=== PATIENT | female | born 1965 | race African-American/Black ===

== ENCOUNTER 2017-06-04 08:24 | Inpatient (IN) | payer OTHER ==
[2017-06-04 10:19] VITALS: BMI 21.2
--- NOTE | 2017-06-04 12:09 | HP ---
CIWA Score - CIWA Score Nausea/Vomitin Muscle Tremors: 3 Anxiety: 3 Agitation: 3 Paroxysmal Sweats: 1-Minimal Palms Moist Orientation: 0-Oriented Tacttile Disturbances: 1-Very Mild Itch/Numbness Auditory Disturbances: 1-Very Mild Visual Disturbances: 0-None Headache: 2-Mild CIWA-Ar Total Score: 17 Admission ROS BHS - HPI Chief Complaint: I NEED HELP TO STOP DRINKING ALCOHOL AND COCAINE Allergies/Adverse Reactions: Allergies Allergy/AdvReac Type Severity Reaction Status Date / Time No Known Allergies Allergy Verified 06/04/17 10:29 History of Present Illness: THIS 51 YEARS OLD FEMALE WITH ALCOHOL AND COCAINE DEPENDENCE,SEEKING DETOX, WITHDRAWAL SYMPTOM,LAST DETOX AT [place] [id number] NICOTINE DEPENDENCE LONGEST SOBRIETY 6 MONTHS Exam Limitations: No Limitations - Ebola screening Have you traveled outside of the country in the last 21 days: No Have you had contact with anyone from an Ebola affected area: No Have you been sick,other than usual withdrawal symptoms: No - Review of Systems Constitutional: Loss of Appetite, Malaise, Night Sweats, Changes in sleep, Weakness, Unintentional Wgt. Loss EENT: reports: Nose Congestion Respiratory: reports: No Symptoms reported Cardiac: reports: No Symptoms Reported GI: reports: Nausea, Vomiting, Abdominal cramping : reports: No Symptoms Reported Musculoskeletal: reports: Back Pain, Muscle Pain Integumentary: reports: Dryness Neuro: reports: Headache, Tremors Endocrine: reports: No Symptoms Reported Hematology: reports: No Symptoms Reported Psychiatric: reports: No Sypmtoms Reported, Judgement Intact, Mood/Affect Appropiate, Orientated x3 Patient History - Patient Medical History Hx Anemia: No Hx Asthma: No Hx Chronic Obstructive Pulmonary Disease (COPD): No Hx Cancer: No Hx Cardiac Disorders: No Hx Congestive Heart Failure: No Hx Hypertension: No Hx Hypercholesterolemia: No Hx Pacemaker: No HX Cerebrovascular Accident: No Hx Seizures: No Hx Dementia: No Hx Diabetes: No Hx Gastrointestinal Disorders: No Hx Liver Disease: No Hx Genitourinary Disorders: No Hx Sexually Transmitted Disorders: No Hx Renal Disease (ESRD): No Hx Thyroid Disease: No Hx Human Immunodeficiency Virus (HIV): No (LAST 2015 NEGATIVE) Hx Hepatitis C: No Hx Depression: No Hx Suicide Attempt: No Hx Bipolar Disorder: No Hx Schizophrenia: No Other Medical History: NO SUICIDAL NO HOMICIDAL - Patient Surgical History Past Surgical History: No Hx Neurologic Surgery: No Hx Cataract Extraction: No Hx Cardiac Surgery: No Hx Lung Surgery: No Hx Breast Surgery: No Hx Breast Biopsy: No Hx Abdominal Surgery: No Hx Appendectomy: No Hx Cholecystectomy: No Hx Genitourinary Surgery: No Hx Section: No Hx Orthopedic Surgery: No Anesthesia Reaction: No - PPD History Previous Implant?: Yes Documented Results: Negative w/o proof Implanted On Prior [facility] Admission?: No PPD to be Administered?: Yes - Reproductive History Patient is a Female of Child Bearing Age (11 -55 yrs old): Yes Patient : No - Smoking Cessation Smoking history: Current every day smoker Have you smoked in the past 12 months: Yes Aproximately how many cigarettes per day: 20 Hx Chewing Tobacco Use: No Initiated information on smoking cessation: Yes 'Breaking Loose' booklet given: 06/04/17 - Substance & Tx. History Hx Alcohol Use: Yes Hx Substance Use: Yes Substance Use Type: Alcohol, Cocaine Hx Substance Use Treatment: Yes (LAST 2015 [facility]) - Substances Abused Crack Route: Smoking Frequency: Daily Amount used: 50 Age of first use: 20 Date of Last Use: 06/03/17 Cocaine Route: Smoking Frequency: Daily Amount used: 50 Age of first use: 20 Date of Last Use: 06/03/17 Alcohol Route: Oral Frequency: Daily Amount used: 1 PINT Age of first use: 20 Date of Last Use: 06/03/17 Family Disease History - Family Disease History Family History: Denies Admission Physical Exam BHS - Vital Signs Vital Signs: Vital Signs - 24 hr 06/04/17 10:16 Temperature 97.4 F L Pulse Rate 71 Respiratory 19 Rate Blood Pressure 107/65 - Physical General Appearance: Yes: Moderate Distress, Tremorous, Irritable, Sweating, Anxious HEENTM: Yes: Normal ENT Inspection, ANNIE, Pharynx Normal Respiratory: Yes: Lungs Clear, Normal Breath Sounds, No Respiratory Distress Neck: Yes: Within Normal Limits, Supple, Trachea in good position Breast: Yes: Breast Exam Deferred Cardiology: Yes: Within Normal Limits, Regular Rhythm, Regular Rate, S1, S2 Abdominal: Yes: Within Normal Limits, Normal Bowel Sounds, Non Tender, Soft Genitourinary: Yes: Within Normal Limits Back: Yes: Muscle Spasm Musculoskeletal: Yes: Back pain, Muscle Pain Extremities: Yes: Within Normal Limits, Normal Range of Motion, Tremors Neurological: Yes: wordpress developer II-XII NML intact, Fully Oriented, Alert, Motor Strength 5/5 Integumentary: Yes: Dry Lymphatic: Yes: Within Normal Limits - Diagnostic (1) Alcohol dependence with uncomplicated withdrawal Current Visit: Yes Status: Acute (2) Cocaine dependence Current Visit: Yes Status: Acute (3) Weight loss Current Visit: Yes Status: Acute (4) Nicotine dependence Current Visit: Yes Status: Acute Cleared for Admission [facility] - Detox or Rehab [facility] Level of Care: Medically Managed Detox Regimen/Protocol: Librium [facility] Breath Alcohol Content Breath Alcohol Content: 0.031 Urine Pregancy Test - Result Urine Test Results: Negative- NO Line Present Urine Drug Screen - Results Urine Drug Screen Results: NANCIE-Cocaine
[2017-06-04] MEDS ORDERED: MAG HYDROX/AL HYDROX/SIMETH 30 ML UNIT-DOSE CUP PO PRN (12:15)
[2017-06-04] MEDS ORDERED: MAGNESIUM CITRATE 300 ML BOTTLE PO PRN (12:15)
[2017-06-04] MEDS ORDERED: LOPERAMIDE HCL 2 MG CAPSULE PO PRN (12:15)
[2017-06-04] MEDS ORDERED: chlordiazePOXIDE HCL 25 MG CAPSULE PO PRN (12:15)
[2017-06-04] MEDS ORDERED: guaiFENesin/D-METHORPHAN HB 10 ML UNIT-DOSE CUPS PO PRN (12:15)
[2017-06-04] MEDS ORDERED: P-EPHED 60MG/TRIPROLIDI 2.5MG TABLET PO PRN (12:15)
[2017-06-04] MEDS ORDERED: IBUPROFEN 400 MG TABLET (FP) PO PRN (12:15)
[2017-06-04] MEDS ORDERED: ACETAMINOPHEN 325 MG TABLET (FP) PO PRN (12:15)
[2017-06-04] MEDS ORDERED: MAGNESIUM HYDROX 2400MG/30ML ORAL SUSPENSION 30 ML CUP PO PRN (12:15)
[2017-06-04] MEDS ORDERED: MENTHOL/PHENOL 1 EACH UD MM PRN (12:15)
[2017-06-04] MEDS ORDERED: hydrOXYzine PAMOATE 50 MG CAPSULE (FP) PO PRN (12:15)
[2017-06-04] MEDS ORDERED: chlordiazePOXIDE HCL 25 MG CAPSULE PO ONE (13:15)
[2017-06-04] MEDS: chlordiazePOXIDE HCL 25 MG CAPSULE PO SCH ×2 (17:52→22:42)
[2017-06-04] MEDS: THIAMINE HCL 100 MG TABLET (FP) PO SCH (22:42)
[2017-06-04] MEDS: MELATONIN 5 MG TABLETS PO PRN (22:43)
[2017-06-04 23:38] LABS: URINE APPEARANCE CLEAR; URINE BILIRUBIN NEGATIVE (<2.0 mg/dL); URINE BLOOD NEGATIVE (NEGATIVE); URINE COLOR LTYELLOW; URINE GLUCOSE (UA) NEGATIVE (NEGATIVE); URINE KETONE 1+ (NEGATIVE); URINE LEUK ESTERASE NEGATIVE (NEGATIVE); URINE NITRITE NEGATIVE (NEGATIVE); URINE PROTEIN NEGATIVE (NEGATIVE); URINE UROBILINOGEN NEGATIVE mg/dL (0.2-1.0)
[2017-06-05] MEDS: chlordiazePOXIDE HCL 25 MG CAPSULE PO SCH ×4 (06:27→22:32)
[2017-06-05 10:36] LABS: HEMATOCRIT 32.2 % (32.4-45.2); HEMOGLOBIN 10.8 GM/dL (10.7-15.3); MCH 32.7 pg (25.7-33.7); MCHC 33.5 g/dl (32.0-36.0); MEAN CELL VOLUME 97.8 fl (80-96); MEAN PLT VOLUME 8.6 fl (7.5-11.1); PLATELET COUNT 196 K/MM3 (134-434); RBC 3.29 M/mm3 (3.60-5.2); RDW 14.2 % (11.6-15.6)
[2017-06-05 10:45] LABS: ALBUMIN 3.7 g/dl (3.4-5.0); ANION GAP 9 (8-16); BILIRUBIN,TOTAL 0.2 mg/dL (0.2-1.0); BLOOD UREA NITROGEN 19 mg/dL (7-18); CHLORIDE 106 mmol/L (98-107); CO2 25 mmol/L (21-32); GLUCOSE,RANDOM 139 mg/dL (74-106); POTASSIUM 3.8 mmol/L (3.5-5.1); SGOT/AST 193 U/L (15-37); SGPT/ALT 61 U/L (12-78); SODIUM 140 mmol/L (136-145); TOT PROT 7.1 g/dl (6.4-8.2)
[2017-06-05 10:46] LABS: ALK PHOS 86 U/L (45-117); CALCIUM 8.3 mg/dL (8.5-10.1)
[2017-06-05] MEDS: PRENATAL VITAMINS W/ FOLIC ACID TABLET (FP) PO SCH (11:08)
--- NOTE | 2017-06-05 16:22 | PN ---
S CIWA - CIWA Score Nausea/Vomitin Muscle Tremors: 3 Anxiety: 3 Agitation: 3 Paroxysmal Sweats: 1-Minimal Palms Moist Orientation: 0-Oriented Tacttile Disturbances: 1-Very Mild Itch/Numbness Auditory Disturbances: 1-Very Mild Visual Disturbances: 0-None Headache: 2-Mild CIWA-Ar Total Score: 17 BHS Progress Note (SOAP) Subjective: ALERT,IRRITABLE,ANXIOUS,INTERRUPTED SLEEP,TREMOR,PAIN IN THE BODY Objective: 06/05/17 16:19 Vital Signs Temperature 99 F 06/05/17 16:04 Pulse Rate 71 06/05/17 16:04 Respiratory Rate 19 06/05/17 16:04 Blood Pressure 119/65 06/05/17 16:04 O2 Sat by Pulse Oximetry (%) EKG SINUS BADYCARDAI 57/MIN NO CHEST PAIN,NO SOB,NO DIZZINESS Laboratory Last Values WBC 4.0 K/mm3 (4.0-10.0) 06/05/17 06:20 RBC 3.29 M/mm3 (3.60-5.2) L 06/05/17 06:20 Hgb 10.8 GM/dL (10.7-15.3) 06/05/17 06:20 Hct 32.2 % (32.4-45.2) L 06/05/17 06:20 MCV 97.8 fl (80-96) H 06/05/17 06:20 MCH 32.7 pg (25.7-33.7) 06/05/17 06:20 MCHC 33.5 g/dl (32.0-36.0) 06/05/17 06:20 RDW 14.2 % (11.6-15.6) 06/05/17 06:20 Plt Count 196 K/MM3 (134-434) 06/05/17 06:20 MPV 8.6 fl (7.5-11.1) 06/05/17 06:20 Sodium 140 mmol/L (136-145) 06/05/17 06:20 Potassium 3.8 mmol/L (3.5-5.1) 06/05/17 06:20 Chloride 106 mmol/L (98-107) 06/05/17 06:20 Carbon Dioxide 25 mmol/L (21-32) 06/05/17 06:20 Anion Gap 9 (8-16) 06/05/17 06:20 BUN 19 mg/dL (7-18) H 06/05/17 06:20 Creatinine 1.0 mg/dL (0.55-1.02) 06/05/17 06:20 Creat Clearance w eGFR 58.93 (>60) 06/05/17 06:20 Random Glucose 139 mg/dL (74-106) H 06/05/17 06:20 Calcium 8.3 mg/dL (8.5-10.1) L 06/05/17 06:20 Total Bilirubin 0.2 mg/dL (0.2-1.0) 06/05/17 06:20 AST 193 U/L (15-37) H 06/05/17 06:20 ALT 61 U/L (12-78) 06/05/17 06:20 Alkaline Phosphatase 86 U/L (45-117) 06/05/17 06:20 Total Protein 7.1 g/dl (6.4-8.2) 06/05/17 06:20 Albumin 3.7 g/dl (3.4-5.0) 06/05/17 06:20 Urine Color Ltyellow 06/04/17 19:42 Urine Appearance Clear 06/04/17 19:42 Urine pH 5.0 (5.0-8.0) 06/04/17 19:42 Ur Specific [place] 1.019 (1.001-1.035) 06/04/17 19:42 Urine Protein Negative (NEGATIVE) 06/04/17 19:42 Urine Glucose (UA) Negative (NEGATIVE) 06/04/17 19:42 Urine Ketones 1+ (NEGATIVE) H 06/04/17 19:42 Urine Blood Negative (NEGATIVE) 06/04/17 19:42 Urine Nitrite Negative (NEGATIVE) 06/04/17 19:42 Urine Bilirubin Negative (<2.0 mg/dL) 06/04/17 19:42 Urine Urobilinogen Negative mg/dL (0.2-1.0) 06/04/17 19:42 Ur Leukocyte Esterase Negative (NEGATIVE) 06/04/17 19:42 RPR Titer Nonreactive (NONREACTIVE) 06/05/17 06:20 Assessment: 06/05/17 16:22 WITHDRAWAL SYMPTOM Plan: CONTINUE DETOX,FASTING GLUCOSE IN AM,INITIAL GLUCOSE 139
[2017-06-05] MEDS: THIAMINE HCL 100 MG TABLET (FP) PO SCH (22:31)
[2017-06-05] MEDS: MELATONIN 5 MG TABLETS PO PRN (22:32)
[2017-06-06] MEDS: chlordiazePOXIDE HCL 25 MG CAPSULE PO SCH ×2 (06:07→11:09)
[2017-06-06] MEDS: PRENATAL VITAMINS W/ FOLIC ACID TABLET (FP) PO SCH (11:09)
--- NOTE | 2017-06-06 12:58 | PN ---
S CIWA - CIWA Score Nausea/Vomitin-Mild Nausea/No Vomiting Muscle Tremors: 4-Moderate,w/Arms Extend Anxiety: 3 Agitation: 3 Paroxysmal Sweats: 1-Minimal Palms Moist Orientation: 0-Oriented Tacttile Disturbances: 1-Very Mild Itch/Numbness Auditory Disturbances: 0-None Visual Disturbances: 0-None Headache: 1-Very Mild CIWA-Ar Total Score: 14 BHS Progress Note (SOAP) Subjective: sweat tremor anxiety restlessness trouble sleeping Objective: 06/06/17 12:57 Vital Signs Temperature 98.1 F 06/06/17 12:16 Pulse Rate 68 06/06/17 12:16 Respiratory Rate 20 06/06/17 12:16 Blood Pressure 115/76 06/06/17 12:16 O2 Sat by Pulse Oximetry (%) Laboratory Last Values WBC 4.0 K/mm3 (4.0-10.0) 06/05/17 06:20 RBC 3.29 M/mm3 (3.60-5.2) L 06/05/17 06:20 Hgb 10.8 GM/dL (10.7-15.3) 06/05/17 06:20 Hct 32.2 % (32.4-45.2) L 06/05/17 06:20 MCV 97.8 fl (80-96) H 06/05/17 06:20 MCH 32.7 pg (25.7-33.7) 06/05/17 06:20 MCHC 33.5 g/dl (32.0-36.0) 06/05/17 06:20 RDW 14.2 % (11.6-15.6) 06/05/17 06:20 Plt Count 196 K/MM3 (134-434) 06/05/17 06:20 MPV 8.6 fl (7.5-11.1) 06/05/17 06:20 Sodium 140 mmol/L (136-145) 06/05/17 06:20 Potassium 3.8 mmol/L (3.5-5.1) 06/05/17 06:20 Chloride 106 mmol/L (98-107) 06/05/17 06:20 Carbon Dioxide 25 mmol/L (21-32) 06/05/17 06:20 Anion Gap 9 (8-16) 06/05/17 06:20 BUN 19 mg/dL (7-18) H 06/05/17 06:20 Creatinine 1.0 mg/dL (0.55-1.02) 06/05/17 06:20 Creat Clearance w eGFR 58.93 (>60) 06/05/17 06:20 Random Glucose 139 mg/dL (74-106) H 06/05/17 06:20 Fasting Glucose 77 mg/dL (70-105) 06/06/17 07:30 Calcium 8.3 mg/dL (8.5-10.1) L 06/05/17 06:20 Total Bilirubin 0.2 mg/dL (0.2-1.0) 06/05/17 06:20 AST 193 U/L (15-37) H 06/05/17 06:20 ALT 61 U/L (12-78) 06/05/17 06:20 Alkaline Phosphatase 86 U/L (45-117) 06/05/17 06:20 Total Protein 7.1 g/dl (6.4-8.2) 06/05/17 06:20 Albumin 3.7 g/dl (3.4-5.0) 06/05/17 06:20 Urine Color Ltyellow 06/04/17 19:42 Urine Appearance Clear 06/04/17 19:42 Urine pH 5.0 (5.0-8.0) 06/04/17 19:42 Ur Specific [place] 1.019 (1.001-1.035) 06/04/17 19:42 Urine Protein Negative (NEGATIVE) 06/04/17 19:42 Urine Glucose (UA) Negative (NEGATIVE) 06/04/17 19:42 Urine Ketones 1+ (NEGATIVE) H 06/04/17 19:42 Urine Blood Negative (NEGATIVE) 06/04/17 19:42 Urine Nitrite Negative (NEGATIVE) 06/04/17 19:42 Urine Bilirubin Negative (<2.0 mg/dL) 06/04/17 19:42 Urine Urobilinogen Negative mg/dL (0.2-1.0) 06/04/17 19:42 Ur Leukocyte Esterase Negative (NEGATIVE) 06/04/17 19:42 RPR Titer Nonreactive (NONREACTIVE) 06/05/17 06:20 lab noted Assessment: 06/06/17 12:58 withdrawal sx Plan: continue detox
[2017-06-06] MEDS ORDERED: PETROLATUM, WHITE 30 GM TUBE TP SCH (15:15)
[2017-06-06] MEDS ORDERED: chlordiazePOXIDE 5 MG CAPSULE PO SCH (17:00)
[2017-06-06 17:26] VITALS: BP 130/80; PULSE 69; TEMP 98.2
--- NOTE | 2017-06-06 20:37 | DS ---
[facility] Detox Discharge Summary Admission Date: 06/04/17 Discharge Date: 06/06/17 - History Present History: Alcohol Dependence, Cocaine Dependence Pertinent Past History: NICOTINE DEPENDENCE WEIGHT LOSS - Physical Exam Results Vital Signs: Vital Signs Temperature 98.2 F 06/06/17 17:26 Pulse Rate 69 06/06/17 17:26 Respiratory Rate 16 06/06/17 17:26 Blood Pressure 130/80 06/06/17 17:26 O2 Sat by Pulse Oximetry (%) Pertinent Admission Physical Exam Findings: Laboratory Last Values WBC 4.0 K/mm3 (4.0-10.0) 06/05/17 06:20 RBC 3.29 M/mm3 (3.60-5.2) L 06/05/17 06:20 Hgb 10.8 GM/dL (10.7-15.3) 06/05/17 06:20 Hct 32.2 % (32.4-45.2) L 06/05/17 06:20 MCV 97.8 fl (80-96) H 06/05/17 06:20 MCH 32.7 pg (25.7-33.7) 06/05/17 06:20 MCHC 33.5 g/dl (32.0-36.0) 06/05/17 06:20 RDW 14.2 % (11.6-15.6) 06/05/17 06:20 Plt Count 196 K/MM3 (134-434) 06/05/17 06:20 MPV 8.6 fl (7.5-11.1) 06/05/17 06:20 Sodium 140 mmol/L (136-145) 06/05/17 06:20 Potassium 3.8 mmol/L (3.5-5.1) 06/05/17 06:20 Chloride 106 mmol/L (98-107) 06/05/17 06:20 Carbon Dioxide 25 mmol/L (21-32) 06/05/17 06:20 Anion Gap 9 (8-16) 06/05/17 06:20 BUN 19 mg/dL (7-18) H 06/05/17 06:20 Creatinine 1.0 mg/dL (0.55-1.02) 06/05/17 06:20 Creat Clearance w eGFR 58.93 (>60) 06/05/17 06:20 Random Glucose 139 mg/dL (74-106) H 06/05/17 06:20 Fasting Glucose 77 mg/dL (70-105) 06/06/17 07:30 Calcium 8.3 mg/dL (8.5-10.1) L 06/05/17 06:20 Total Bilirubin 0.2 mg/dL (0.2-1.0) 06/05/17 06:20 AST 193 U/L (15-37) H 06/05/17 06:20 ALT 61 U/L (12-78) 06/05/17 06:20 Alkaline Phosphatase 86 U/L (45-117) 06/05/17 06:20 Total Protein 7.1 g/dl (6.4-8.2) 06/05/17 06:20 Albumin 3.7 g/dl (3.4-5.0) 06/05/17 06:20 Urine Color Ltyellow 06/04/17 19:42 Urine Appearance Clear 06/04/17 19:42 Urine pH 5.0 (5.0-8.0) 06/04/17 19:42 Ur Specific [place] 1.019 (1.001-1.035) 06/04/17 19:42 Urine Protein Negative (NEGATIVE) 06/04/17 19:42 Urine Glucose (UA) Negative (NEGATIVE) 06/04/17 19:42 Urine Ketones 1+ (NEGATIVE) H 06/04/17 19:42 Urine Blood Negative (NEGATIVE) 06/04/17 19:42 Urine Nitrite Negative (NEGATIVE) 06/04/17 19:42 Urine Bilirubin Negative (<2.0 mg/dL) 06/04/17 19:42 Urine Urobilinogen Negative mg/dL (0.2-1.0) 06/04/17 19:42 Ur Leukocyte Esterase Negative (NEGATIVE) 06/04/17 19:42 RPR Titer Nonreactive (NONREACTIVE) 06/05/17 06:20 LABS NOTED - Treatment Hospital Course: Discharged Condition Good - Medication Discharge Medications: Ambulatory Orders NK [No Known Home Medication] 06/04/17 - Diagnosis (1) Alcohol dependence with uncomplicated withdrawal Current Visit: Yes Status: Chronic (2) Cocaine dependence Current Visit: Yes Status: Chronic (3) Nicotine dependence Current Visit: Yes Status: Chronic (4) Weight loss Current Visit: Yes Status: Acute - AMA Did Patient Leave Against Medical Advice: Yes (REQUESTED TO LEAVE AMA; DID NOT WANT MED REFILLS. )
--- NOTE | 2017-06-07 12:45 | EKG ---
Test Reason : Blood Pressure : / mmHG Vent. Rate : 057 BPM Atrial Rate : 057 BPM P-R Int : 198 ms QRS Dur : 084 ms QT Int : 484 ms P-R-T Axes : 064 064 054 degrees QTc Int : 471 ms SINUS BRADYCARDIA VOLTAGE CRITERIA FOR LEFT VENTRICULAR HYPERTROPHY ABNORMAL ECG NO PREVIOUS ECGS AVAILABLE Confirmed by LISA LUNDBERG MD ([id number]) on 06/07/2017 12:44:40 PM Referred By: Confirmed By:LISA LUNDBERG MD
[2017-06-07] MEDS ORDERED: chlordiazePOXIDE HCL 10 MG CAPSULE PO SCH (17:00)
== END 2017-06-06 20:20 | disposition left against medical advice (07) | DRG 770 ==
LOC: YASAS 08:24 → Y6N 12:02
PROVIDERS: ADMIT Internal Medicine; ATTEND Internal Medicine
PROC: HZ2ZZZZ Detoxification Services for Substance Abuse Treatment (ICD-10-PCS; principal; 2017-06-04)
DX: F10.230 Alcohol dependence with withdrawal, uncomplicated (principal); F14.20 Cocaine dependence, uncomplicated; F17.210 Nicotine dependence, cigarettes, uncomplicated; R63.4 Abnormal weight loss; Z68.21 Body mass index [BMI] 21.0-21.9, adult
CPT/HCPCS: 36415; 80053; 81003; 82947; 85027; 86593; 93005; 93010

== ENCOUNTER 2017-12-23 15:27 | Inpatient (IN) | payer OTHER ==
[2017-12-23 16:41] VITALS: BMI 28.2
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
[2017-12-23] MEDS ORDERED: MAG HYDROX/AL HYDROX/SIMETH 30 ML UNIT-DOSE CUP PO PRN (17:51)
[2017-12-23] MEDS ORDERED: MAGNESIUM HYDROX 2400MG/30ML ORAL SUSPENSION 30 ML CUP PO PRN (17:51)
[2017-12-23] MEDS ORDERED: LOPERAMIDE HCL 2 MG CAPSULE PO PRN (17:51)
[2017-12-23] MEDS ORDERED: guaiFENesin/D-METHORPHAN HB 10 ML UNIT-DOSE CUPS PO PRN (17:51)
[2017-12-23] MEDS ORDERED: chlordiazePOXIDE HCL 25 MG CAPSULE PO PRN (17:51)
[2017-12-23] MEDS ORDERED: chlordiazePOXIDE HCL 25 MG CAPSULE PO ONE (17:51)
[2017-12-23] MEDS ORDERED: ACETAMINOPHEN 325 MG TABLET (FP) PO PRN (17:51)
[2017-12-23] MEDS ORDERED: NICOTINE POLACRILEX 2 MG GUM BC PRN (17:51)
[2017-12-23] MEDS ORDERED: MAGNESIUM CITRATE 300 ML BOTTLE PO PRN (17:51)
[2017-12-23] MEDS ORDERED: P-EPHED 60MG/TRIPROLIDI 2.5MG TABLET PO PRN (17:51)
[2017-12-23] MEDS ORDERED: MENTHOL/PHENOL 1 EACH UD MM PRN (17:51)
[2017-12-23] MEDS ORDERED: hydrOXYzine PAMOATE 50 MG CAPSULE (FP) PO PRN (17:51)
[2017-12-23] MEDS: IBUPROFEN 400 MG TABLET (FP) PO PRN (18:51)
[2017-12-23] MEDS: OFLOXACIN 0.3% OS SCH (20:00)
[2017-12-23] MEDS ORDERED: MELATONIN 5 MG TABLETS PO PRN (22:00)
[2017-12-23] MEDS: THIAMINE HCL 100 MG TABLET (FP) PO SCH (22:09)
[2017-12-23] MEDS: chlordiazePOXIDE HCL 25 MG CAPSULE PO SCH (22:09)
[2017-12-23] MEDS: VITAMINS A AND D TOPICAL OINTMENT 60 GM TUBE TP SCH (22:11)
[2017-12-23 23:55] LABS: URINE APPEARANCE CLEAR; URINE BILIRUBIN NEGATIVE (<2.0 mg/dL); URINE COLOR YELLOW; URINE GLUCOSE (UA) NEGATIVE (NEGATIVE); URINE KETONE NEGATIVE (NEGATIVE); URINE LEUK ESTERASE NEGATIVE (NEGATIVE); URINE NITRITE NEGATIVE (NEGATIVE); URINE PROTEIN NEGATIVE (NEGATIVE); URINE UROBILINOGEN NEGATIVE mg/dL (0.2-1.0)
[2017-12-24] MEDS: OFLOXACIN 0.3% OS SCH ×5 (05:16→20:55)
[2017-12-24] MEDS: chlordiazePOXIDE HCL 25 MG CAPSULE PO SCH ×4 (05:40→22:09)
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
[2017-12-24] MEDS: PRENATAL VITAMINS W/ FOLIC ACID TABLET (FP) PO SCH (10:13)
[2017-12-24] MEDS: VITAMINS A AND D TOPICAL OINTMENT 60 GM TUBE TP SCH ×2 (10:13→22:12)
[2017-12-24] MEDS: NICOTINE 21 MG/24 HOURS TOPICAL PATCH TD SCH (10:14)
[2017-12-24 10:31] LABS: HEMOGLOBIN 11.4 GM/dL (10.7-15.3)
[2017-12-24 10:35] LABS: HEMATOCRIT 35.4 % (32.4-45.2); MCH 31.4 pg (25.7-33.7); MCHC 32.3 g/dl (32.0-36.0); MEAN CELL VOLUME 97.4 fl (80-96); MEAN PLT VOLUME 8.7 fl (7.5-11.1); PLATELET COUNT 221 K/MM3 (134-434); RBC 3.64 M/mm3 (3.60-5.2); RDW 14.8 % (11.6-15.6); WHITE BLOOD COUNT 3.6 K/mm3 (4.0-10.0)
[2017-12-24 10:36] LABS: ALBUMIN 3.4 g/dl (3.4-5.0); ALK PHOS 65 U/L (45-117); ANION GAP 10 MMOL/L (8-16); BILIRUBIN,TOTAL 0.5 mg/dL (0.2-1); BLOOD UREA NITROGEN 18 mg/dL (7-18); CALCIUM 8.6 mg/dL (8.5-10.1); CHLORIDE 104 mmol/L (98-107); CO2 27 mmol/L (21-32); CREATININE 0.9 mg/dL (0.55-1.3); GLUCOSE,RANDOM 90 mg/dL (74-106); POTASSIUM 3.4 mmol/L (3.5-5.1); SGOT/AST 20 U/L (15-37); SGPT/ALT 15 U/L (13-61); SODIUM 141 mmol/L (136-145); TOT PROT 6.9 g/dl (6.4-8.2)
--- NOTE | 2017-12-24 11:37 | EKG ---
Test Reason : Blood Pressure : / mmHG Vent. Rate : 072 BPM Atrial Rate : 072 BPM P-R Int : 186 ms QRS Dur : 084 ms QT Int : 416 ms P-R-T Axes : 070 066 066 degrees QTc Int : 455 ms NORMAL SINUS RHYTHM NORMAL ECG WHEN COMPARED WITH ECG OF 04-JUN-2017 13:32, NO SIGNIFICANT CHANGE WAS FOUND Confirmed by DORIAN PARRA MD ([id number]) on 12/24/2017 11:37:14 AM Referred By: Confirmed By:DORIAN PARRA MD
--- NOTE | 2017-12-24 12:05 | PN ---
S CIWA - CIWA Score Nausea/Vomitin-No Nausea/No Vomiting Muscle Tremors: 2 Anxiety: 2 Agitation: 2 Paroxysmal Sweats: 2 Orientation: 0-Oriented Tacttile Disturbances: 0-None Auditory Disturbances: 0-None Visual Disturbances: 0-None Headache: 0-None Present CIWA-Ar Total Score: 8 BHS Progress Note (SOAP) Subjective: PATIENT C/O SHAKES, SWEATS AND ANXIETY. Objective: 12/24/17 12:04 Vital Signs Temperature 97.7 F 12/24/17 09:05 Pulse Rate 59 L 12/24/17 09:05 Respiratory Rate 18 12/24/17 09:05 Blood Pressure 117/72 12/24/17 09:05 O2 Sat by Pulse Oximetry (%) Laboratory Tests 12/23/17 12/24/17 12/24/17 21:06 07:30 07:30 WBC 3.6 L RBC 3.64 Hgb 11.4 Hct 35.4 MCV 97.4 H MCH 31.4 MCHC 32.3 RDW 14.8 Plt Count 221 MPV 8.7 Sodium 141 Potassium 3.4 L Chloride 104 Carbon Dioxide 27 Anion Gap 10 BUN 18 Creatinine 0.9 Creat Clearance w eGFR > 60 Random Glucose 90 Calcium 8.6 Total Bilirubin 0.5 AST 20 ALT 15 Alkaline Phosphatase 65 Total Protein 6.9 Albumin 3.4 Urine Color Yellow Urine Appearance Clear Urine pH 5.0 Ur Specific [place] 1.020 Urine Protein Negative Urine Glucose (UA) Negative Urine Ketones Negative Urine Blood Negative Urine Nitrite Negative Urine Bilirubin Negative Urine Urobilinogen Negative Ur Leukocyte Esterase Negative RPR Titer 12/24/17 07:30 WBC RBC Hgb Hct MCV MCH MCHC RDW Plt Count MPV Sodium Potassium Chloride Carbon Dioxide Anion Gap BUN Creatinine Creat Clearance w eGFR Random Glucose Calcium Total Bilirubin AST ALT Alkaline Phosphatase Total Protein Albumin Urine Color Urine Appearance Urine pH Ur Specific [place] Urine Protein Urine Glucose (UA) Urine Ketones Urine Blood Urine Nitrite Urine Bilirubin Urine Urobilinogen Ur Leukocyte Esterase RPR Titer Nonreactive PE: SKIN WARM AND MOIST CAR S1S2 RESP CTA BL EXT FULL ROM, +TREMORS ALERT AND ORIENTED X 3 Assessment: 12/24/17 12:05 WITHDRAWAL SYNDROME Plan: CONTINUUE DETOX ORDERED ENCOURAGE ORAL FLUIDS CONTINUE TO MONITOR CLINICALLY
[2017-12-24] MEDS: IBUPROFEN 400 MG TABLET (FP) PO PRN (18:57)
[2017-12-24] MEDS: THIAMINE HCL 100 MG TABLET (FP) PO SCH (22:09)
[2017-12-25] MEDS: OFLOXACIN 0.3% OS SCH ×7 (00:38→22:45)
[2017-12-25] MEDS: chlordiazePOXIDE HCL 25 MG CAPSULE PO SCH ×3 (05:56→18:00)
--- NOTE | 2017-12-25 09:59 | PN ---
S CIWA - CIWA Score Nausea/Vomitin-No Nausea/No Vomiting Muscle Tremors: 1-None Visible, but [place] Anxiety: 1-Mildly Anxious Agitation: 1-Slight > Activity Paroxysmal Sweats: 2 Orientation: 0-Oriented Tacttile Disturbances: 0-None Auditory Disturbances: 0-None Visual Disturbances: 0-None Headache: 0-None Present CIWA-Ar Total Score: 5 BHS Progress Note (SOAP) Subjective: PATIENT C/O MILD ANXIETY, RESTLESSNESS AND SWEATING. Objective: 12/25/17 09:57 Vital Signs Temperature 98.2 F 12/25/17 09:32 Pulse Rate 77 12/25/17 09:32 Respiratory Rate 18 12/25/17 09:32 Blood Pressure 101/65 12/25/17 09:32 O2 Sat by Pulse Oximetry (%) Laboratory Tests 12/23/17 12/24/17 12/24/17 21:06 07:30 07:30 WBC 3.6 L RBC 3.64 Hgb 11.4 Hct 35.4 MCV 97.4 H MCH 31.4 MCHC 32.3 RDW 14.8 Plt Count 221 MPV 8.7 Sodium 141 Potassium 3.4 L Chloride 104 Carbon Dioxide 27 Anion Gap 10 BUN 18 Creatinine 0.9 Creat Clearance w eGFR > 60 Random Glucose 90 Calcium 8.6 Total Bilirubin 0.5 AST 20 ALT 15 Alkaline Phosphatase 65 Total Protein 6.9 Albumin 3.4 Urine Color Yellow Urine Appearance Clear Urine pH 5.0 Ur Specific [place] 1.020 Urine Protein Negative Urine Glucose (UA) Negative Urine Ketones Negative Urine Blood Negative Urine Nitrite Negative Urine Bilirubin Negative Urine Urobilinogen Negative Ur Leukocyte Esterase Negative RPR Titer 12/24/17 07:30 WBC RBC Hgb Hct MCV MCH MCHC RDW Plt Count MPV Sodium Potassium Chloride Carbon Dioxide Anion Gap BUN Creatinine Creat Clearance w eGFR Random Glucose Calcium Total Bilirubin AST ALT Alkaline Phosphatase Total Protein Albumin Urine Color Urine Appearance Urine pH Ur Specific [place] Urine Protein Urine Glucose (UA) Urine Ketones Urine Blood Urine Nitrite Urine Bilirubin Urine Urobilinogen Ur Leukocyte Esterase RPR Titer Nonreactive PE: ALERT AND ORIENTED X 3 SKIN MILD MOISTURE OF FACE AND HANDS AMB AD KIMBERLEE EXT FULL ROM, NO EDEMA Assessment: 12/25/17 09:58 WITHDRAWAL SX Plan: CONTINUE DETOX ORDERED ENCOURAGED ORAL FLUIDS COOL COMPRESS TO LEFT EYE DAILY AND PRN ORDERED CONTINUE TO MONITOR
[2017-12-25] MEDS: PRENATAL VITAMINS W/ FOLIC ACID TABLET (FP) PO SCH (10:58)
[2017-12-25] MEDS: NICOTINE 21 MG/24 HOURS TOPICAL PATCH TD SCH (11:00)
[2017-12-25] MEDS: VITAMINS A AND D TOPICAL OINTMENT 60 GM TUBE TP SCH ×2 (11:01→22:12)
[2017-12-25] MEDS: chlordiazePOXIDE 5 MG CAPSULE PO SCH (22:10)
[2017-12-25] MEDS: THIAMINE HCL 100 MG TABLET (FP) PO SCH (22:11)
[2017-12-26] MEDS: OFLOXACIN 0.3% OS SCH ×6 (00:31→22:32)
[2017-12-26] MEDS: chlordiazePOXIDE 5 MG CAPSULE PO SCH ×3 (05:08→17:57)
--- NOTE | 2017-12-26 09:54 | PN ---
BHS Progress Note (SOAP) Subjective: feeling better, no tremor, less sweat no gi idstress Objective: 12/26/17 09:52 Vital Signs Temperature 97.7 F 12/26/17 09:24 Pulse Rate 71 12/26/17 09:24 Respiratory Rate 16 12/26/17 09:24 Blood Pressure 100/60 12/26/17 09:24 O2 Sat by Pulse Oximetry (%) Laboratory Last Values WBC 3.6 K/mm3 (4.0-10.0) L 12/24/17 07:30 RBC 3.64 M/mm3 (3.60-5.2) 12/24/17 07:30 Hgb 11.4 GM/dL (10.7-15.3) 12/24/17 07:30 Hct 35.4 % (32.4-45.2) 12/24/17 07:30 MCV 97.4 fl (80-96) H 12/24/17 07:30 MCH 31.4 pg (25.7-33.7) 12/24/17 07:30 MCHC 32.3 g/dl (32.0-36.0) 12/24/17 07:30 RDW 14.8 % (11.6-15.6) 12/24/17 07:30 Plt Count 221 K/MM3 (134-434) 12/24/17 07:30 MPV 8.7 fl (7.5-11.1) 12/24/17 07:30 Sodium 141 mmol/L (136-145) 12/24/17 07:30 Potassium 3.7 mmol/L (3.5-5.1) 12/25/17 08:00 Chloride 104 mmol/L (98-107) 12/24/17 07:30 Carbon Dioxide 27 mmol/L (21-32) 12/24/17 07:30 Anion Gap 10 MMOL/L (8-16) 12/24/17 07:30 BUN 18 mg/dL (7-18) 12/24/17 07:30 Creatinine 0.9 mg/dL (0.55-1.3) 12/24/17 07:30 Creat Clearance w eGFR > 60 (>60) 12/24/17 07:30 Random Glucose 90 mg/dL (74-106) 12/24/17 07:30 Calcium 8.6 mg/dL (8.5-10.1) 12/24/17 07:30 Total Bilirubin 0.5 mg/dL (0.2-1) 12/24/17 07:30 AST 20 U/L (15-37) 12/24/17 07:30 ALT 15 U/L (13-61) 12/24/17 07:30 Alkaline Phosphatase 65 U/L (45-117) 12/24/17 07:30 Total Protein 6.9 g/dl (6.4-8.2) 12/24/17 07:30 Albumin 3.4 g/dl (3.4-5.0) 12/24/17 07:30 Urine Color Yellow 12/23/17 21:06 Urine Appearance Clear 12/23/17 21:06 Urine pH 5.0 (5.0-8.0) 12/23/17 21:06 Ur Specific [place] 1.020 (1.010-1.035) 12/23/17 21:06 Urine Protein Negative (NEGATIVE) 12/23/17 21:06 Urine Glucose (UA) Negative (NEGATIVE) 12/23/17 21:06 Urine Ketones Negative (NEGATIVE) 12/23/17 21:06 Urine Blood Negative (NEGATIVE) 12/23/17 21:06 Urine Nitrite Negative (NEGATIVE) 12/23/17 21:06 Urine Bilirubin Negative (<2.0 mg/dL) 12/23/17 21:06 Urine Urobilinogen Negative mg/dL (0.2-1.0) 12/23/17 21:06 Ur Leukocyte Esterase Negative (NEGATIVE) 12/23/17 21:06 RPR Titer Nonreactive (NONREACTIVE) 12/24/17 07:30 lab noted Assessment: 12/26/17 09:52 mild withdrawal sx Plan: medically supervised detox
[2017-12-26] MEDS: VITAMINS A AND D TOPICAL OINTMENT 60 GM TUBE TP SCH ×2 (10:18→22:33)
[2017-12-26] MEDS: PRENATAL VITAMINS W/ FOLIC ACID TABLET (FP) PO SCH (10:19)
[2017-12-26] MEDS: NICOTINE 21 MG/24 HOURS TOPICAL PATCH TD SCH (10:20)
[2017-12-26] MEDS: chlordiazePOXIDE HCL 10 MG CAPSULE PO SCH (22:31)
[2017-12-26] MEDS: THIAMINE HCL 100 MG TABLET (FP) PO SCH (22:31)
[2017-12-27] MEDS: OFLOXACIN 0.3% OS SCH (05:00)
[2017-12-27] MEDS: chlordiazePOXIDE HCL 10 MG CAPSULE PO SCH (06:00)
[2017-12-27 09:12] VITALS: BP 96/56; PULSE 77; TEMP 96.4
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
== END 2017-12-27 09:07 | disposition home or self-care (01) | DRG 774 ==
LOC: YASAS 15:27 → Y6N 18:25
PROC: HZ2ZZZZ Detoxification Services for Substance Abuse Treatment (ICD-10-PCS; principal; 2017-12-23)
DX: F10.230 Alcohol dependence with withdrawal, uncomplicated (principal); F14.20 Cocaine dependence, uncomplicated; F17.213 Nicotine dependence, cigarettes, with withdrawal; S05.92XD Unspecified injury of left eye and orbit, subsequent encounter; Y04.2XXD Assault by strike against or bumped into by another person, subsequent encounter
CPT/HCPCS: 36415; 80053; 81003; 84132; 85027; 86593; 93005; 93010

== ENCOUNTER 2018-12-06 10:14 | Inpatient (IN) | payer OTHER ==
[2018-12-06 11:09] VITALS: BMI 22.1
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
[2018-12-06] MEDS ORDERED: guaiFENesin 200 MG/10 ML 10 ML UNIT-DOSE CUPS PO PRN (13:36)
[2018-12-06] MEDS ORDERED: MAGNESIUM CITRATE 300 ML BOTTLE PO PRN (13:36)
[2018-12-06] MEDS ORDERED: P-EPHED 60MG/TRIPROLIDI 2.5MG TABLET PO PRN (13:36)
[2018-12-06] MEDS ORDERED: MAGNESIUM HYDROX 2400MG/30ML ORAL SUSPENSION 30 ML CUP PO PRN (13:36)
[2018-12-06] MEDS ORDERED: MENTHOL/PHENOL 1 EACH UD MM PRN (13:36)
[2018-12-06] MEDS ORDERED: LOPERAMIDE HCL 2 MG CAPSULE PO PRN (13:36)
[2018-12-06] MEDS ORDERED: ACETAMINOPHEN 325 MG TABLET (FP) PO PRN (13:36)
[2018-12-06] MEDS ORDERED: MAG HYDROX/AL HYDROX/SIMETH 30 ML UNIT-DOSE CUP PO PRN (13:36)
[2018-12-06] MEDS ORDERED: hydrOXYzine PAMOATE 50 MG CAPSULE (FP) PO PRN (13:36)
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
[2018-12-06 16:43] LABS: HEMATOCRIT 35.8 % (32.4-45.2); HEMOGLOBIN 11.7 GM/dL (10.7-15.3); MCH 31.8 pg (25.7-33.7); MCHC 32.5 g/dl (32.0-36.0); MEAN CELL VOLUME 97.7 fl (80-96); MEAN PLT VOLUME 8.4 fl (7.5-11.1); PLATELET COUNT 246 K/MM3 (134-434); RBC 3.67 M/mm3 (3.60-5.2); WHITE BLOOD COUNT 6.6 K/mm3 (4.0-10.0)
[2018-12-06 16:54] LABS: ALBUMIN 4.2 g/dl (3.4-5.0); BILIRUBIN,TOTAL 0.3 mg/dL (0.2-1); CALCIUM 9.2 mg/dL (8.5-10.1); CREATININE 0.9 mg/dL (0.55-1.3); POTASSIUM 3.7 mmol/L (3.5-5.1); TOT PROT 7.9 g/dl (6.4-8.2)
[2018-12-06] MEDS ORDERED: TUBERCULIN PPD 5 TU/0.1ML VIAL ID ONE (17:14)
[2018-12-06] MEDS: THIAMINE HCL 100 MG TABLET (FP) PO SCH (21:45)
[2018-12-06] MEDS: IBUPROFEN 400 MG TABLET (FP) PO PRN (21:45)
[2018-12-06] MEDS ORDERED: MELATONIN 5 MG TABLETS PO PRN (22:00)
[2018-12-06 23:58] LABS: EPI CELLS 0.6 /HPF (0-5/HPF); HYALINE CASTS 0 /lpf (0-8); PH,URINE 5.5 (5.0-8.0); URINE APPEARANCE CLEAR; URINE BACTERIA 17.2 /hpf (NEGATIVE); URINE BILIRUBIN NEGATIVE (NEGATIVE); URINE COLOR YELLOW; URINE GLUCOSE (UA) NEGATIVE (NEGATIVE); URINE KETONE TRACE (NEGATIVE); URINE LEUK ESTERASE NEGATIVE (NEGATIVE); URINE NITRITE NEGATIVE (NEGATIVE); URINE PROTEIN NEGATIVE (NEGATIVE); URINE RBC 3 /hpf (0-4); URINE WBC 2 /hpf (0-5)
[2018-12-07] MEDS: PRENATAL VITAMINS W/ FOLIC ACID TABLET (FP) PO SCH (09:55)
[2018-12-07] MEDS: IBUPROFEN 400 MG TABLET (FP) PO PRN (21:38)
[2018-12-07] MEDS: THIAMINE HCL 100 MG TABLET (FP) PO SCH (22:06)
[2018-12-08] MEDS: PRENATAL VITAMINS W/ FOLIC ACID TABLET (FP) PO SCH (09:48)
[2018-12-08] MEDS: IBUPROFEN 400 MG TABLET (FP) PO PRN (09:50)
[2018-12-08] MEDS: THIAMINE HCL 100 MG TABLET (FP) PO SCH (21:32)
[2018-12-08] MEDS: HYDROCORTISONE 1% TOPICAL CREAM 30 GM TUBE TP SCH (21:33)
[2018-12-09] MEDS: HYDROCORTISONE 1% TOPICAL CREAM 30 GM TUBE TP SCH ×2 (09:41→21:34)
[2018-12-09] MEDS: PRENATAL VITAMINS W/ FOLIC ACID TABLET (FP) PO SCH (09:41)
[2018-12-09] MEDS: THIAMINE HCL 100 MG TABLET (FP) PO SCH (21:34)
[2018-12-10] MEDS: PRENATAL VITAMINS W/ FOLIC ACID TABLET (FP) PO SCH (09:33)
[2018-12-10] MEDS: HYDROCORTISONE 1% TOPICAL CREAM 30 GM TUBE TP SCH ×2 (09:33→21:44)
[2018-12-10] MEDS: THIAMINE HCL 100 MG TABLET (FP) PO SCH (21:44)
[2018-12-11] MEDS ORDERED: PT OWN MED DRAWER 7, Y5N ONE (09:58)
[2018-12-11] MEDS: PRENATAL VITAMINS W/ FOLIC ACID TABLET (FP) PO SCH (09:59)
[2018-12-11] MEDS: HYDROCORTISONE 1% TOPICAL CREAM 30 GM TUBE TP SCH ×2 (09:59→21:58)
[2018-12-11] MEDS: THIAMINE HCL 100 MG TABLET (FP) PO SCH (21:58)
[2018-12-12] MEDS: PRENATAL VITAMINS W/ FOLIC ACID TABLET (FP) PO SCH (09:50)
[2018-12-12] MEDS: HYDROCORTISONE 1% TOPICAL CREAM 30 GM TUBE TP SCH ×2 (09:50→21:41)
[2018-12-12] MEDS: THIAMINE HCL 100 MG TABLET (FP) PO SCH (21:41)
[2018-12-13] MEDS: PRENATAL VITAMINS W/ FOLIC ACID TABLET (FP) PO SCH (10:09)
[2018-12-13] MEDS: HYDROCORTISONE 1% TOPICAL CREAM 30 GM TUBE TP SCH ×2 (10:09→21:29)
[2018-12-13] MEDS: THIAMINE HCL 100 MG TABLET (FP) PO SCH (21:29)
[2018-12-14] MEDS: HYDROCORTISONE 1% TOPICAL CREAM 30 GM TUBE TP SCH ×2 (10:37→21:53)
[2018-12-14] MEDS: PRENATAL VITAMINS W/ FOLIC ACID TABLET (FP) PO SCH (10:37)
[2018-12-14] MEDS: THIAMINE HCL 100 MG TABLET (FP) PO SCH (21:53)
[2018-12-15] MEDS ORDERED: PT OWN MED DRAWER 7, Y5N ONE (08:55)
[2018-12-15] MEDS: PRENATAL VITAMINS W/ FOLIC ACID TABLET (FP) PO SCH (10:04)
[2018-12-15] MEDS: HYDROCORTISONE 1% TOPICAL CREAM 30 GM TUBE TP SCH (10:04)
[2018-12-15] MEDS: THIAMINE HCL 100 MG TABLET (FP) PO SCH (21:53)
[2018-12-16] MEDS: PRENATAL VITAMINS W/ FOLIC ACID TABLET (FP) PO SCH (09:59)
[2018-12-16] MEDS: THIAMINE HCL 100 MG TABLET (FP) PO SCH (22:44)
[2018-12-17] MEDS: PRENATAL VITAMINS W/ FOLIC ACID TABLET (FP) PO SCH (09:43)
[2018-12-17] MEDS: THIAMINE HCL 100 MG TABLET (FP) PO SCH (21:55)
[2018-12-18] MEDS: PRENATAL VITAMINS W/ FOLIC ACID TABLET (FP) PO SCH (10:26)
[2018-12-18] MEDS: THIAMINE HCL 100 MG TABLET (FP) PO SCH (21:51)
[2018-12-19] MEDS: PRENATAL VITAMINS W/ FOLIC ACID TABLET (FP) PO SCH (10:45)
[2018-12-19] MEDS: THIAMINE HCL 100 MG TABLET (FP) PO SCH (21:50)
[2018-12-20 06:58] VITALS: BP 122/86; PULSE 100; TEMP 97.6
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
== END 2018-12-20 09:15 | disposition home or self-care (01) | DRG 772 ==
LOC: YASAS 10:14 → Y3E 14:35
PROVIDERS: ADMIT Neuromusculoskeletal Medicine & OMM; ATTEND Neuromusculoskeletal Medicine & OMM
PROC: HZ42ZZZ Group Counseling for Substance Abuse Treatment, Cognitive-Behavioral (ICD-10-PCS; principal; 2018-12-06)
DX: F10.20 Alcohol dependence, uncomplicated (principal); F14.20 Cocaine dependence, uncomplicated; F17.210 Nicotine dependence, cigarettes, uncomplicated; G47.00 Insomnia, unspecified; M25.542 Pain in joints of left hand
CPT/HCPCS: 36415; 80053; 81003; 81025; 85027; 86593